=== PATIENT | female | born 1995 | race African-American/Black ===

== ENCOUNTER 2021-07-10 02:05 | Emergency (ER) | payer OTHER ==
[~2021-07-10] VITALS: Ht 157.5 cm; Wt 116.0 kg
[2021-07-10 02:13] VITALS: BP 151/108
[2021-07-10] MEDS ORDERED: HYDROcodone/APAP 7.5/325MG 1 TAB TABLET PO ONE (02:30)
[2021-07-10] MEDS ORDERED: CYCL10TA19 PO (02:35)
[2021-07-10] MEDS ORDERED: HYDR-2759 PO (02:35)
--- NOTE | 2021-07-10 02:37 | PHYS DOC ---
Past History Past Surgical History: No Surgical History Alcohol Use: None General Adult EDM: Chief Complaint: SHOULDER INJURY HPI: HPI: 26-year-old female presents with right shoulder pain. Patient states that she had a Worker's Comp. injury several months ago when she lived in [place]. She was being seen in having physical therapy at that time. She does not know what her official diagnosis was. She moved up to this area couple months ago and has been unable to get into the Worker's Comp. physician. Records not getting transferred. Patient presents this morning because the pain in her posterior right shoulder is making it so she cannot sleep. She does not have any prescription pain relievers or muscle relaxants. She just wants something to take the edge off so she can only sleep at night. The patient is still working and using the arm daily. She denies any new injuries or falls. Review of Systems: Review of Systems: Constitutional: Denies fever or chills Eyes: Denies change in visual acuity HENT: Denies nasal congestion or sore throat Respiratory: Denies cough or shortness of breath Cardiovascular: Denies chest pain or edema GI: Denies abdominal pain, nausea, vomiting, bloody stools or diarrhea : Denies dysuria Musculoskeletal: Right shoulder pain Integument: Denies rash Neurologic: Denies headache, focal weakness or sensory changes Endocrine: Denies polyuria or polydipsia Lymphatic: Denies swollen glands Psychiatric: Denies depression or anxiety Allergies: Allergies: Allergies Coded Allergies Type Severity Reaction Last Updated Verified No Known Drug Allergies 07/10/21 No Physical Exam: PE: Constitutional: Well developed, well nourished, morbidly obese, no acute d istress, non-toxic appearance. [] HENT: Normocephalic, atraumatic, bilateral external ears normal, oropharynx moist, no oral exudates, nose normal. [] Eyes: PERRLA, EOMI, conjunctiva normal, no discharge. [] Neck: Normal range of motion, no tenderness, supple, no stridor. [] Cardiovascular:Heart rate regular rhythm, no murmur [] Lungs & Thorax: Bilateral breath sounds clear to auscultation [] Abdomen: Bowel sounds normal, soft, no tenderness, no masses, no pulsatile masses. [] Skin: Warm, dry, no erythema, no rash. [] Back: No tenderness, no CVA tenderness. [] Extremities: Tenderness of the right superior and posterior shoulder. Range of motion deferred due to pain. [] Neurologic: Alert and oriented X 3, normal motor function, normal sensory function, no focal deficits noted. [] Psychologic: Affect normal, judgement normal, mood normal. [] Current Patient Data: Vital Signs: Vital Signs Date Time Temp Pulse Resp B/P (MAP) Pulse Ox O2 Delivery O2 Flow Rate FiO2 07/10/21 02:13 98.0 77 18 151/108 (122) 98 EKG: EKG: [] Radiology/Procedures: Radiology/Procedures: [] Heart Score: C/O Chest Pain: N/A Risk Factors: Risk Factors: DM, Current or recent (<one month) smoker, HTN, HLP, family history of CAD, obesity. Risk Scores: Score 0 - 3: 2.5% MACE over next 6 weeks - Discharge Home Score 4 - 6: 20.3% MACE over next 6 weeks - Admit for Clinical Observation Score 7 - 10: 72.7% MACE over next 6 weeks - Early Invasive Strategies Course & Med Decision Making: Course & Med Decision Making Pertinent Labs and Imaging studies reviewed. (See chart for details) Patient appears to be uncomfortable. I will treat her with pain medication to the emergency room. I have checked the narcotics database and she does not have any current records. [place] is not available on my system. I will give the patient a short course of [place] for home and Flexeril. I have encouraged her strongly to get her records in hand deliver them to the Worker's Comp. francesia n. She is stable for discharge at this time. [] Terrance Disclaimer: Terrance Disclaimer: This electronic medical record was generated, in whole or in part, using a voice recognition dictation system. Departure Departure: Impression: Primary Impression: Right shoulder pain Disposition: HOME / SELF CARE / HOMELESS Condition: STABLE Referrals: KORY KAPLAN APRN (PCP) Patient Instructions: Shoulder Pain, [id number] Scripts Hydrocodone/Acetaminophen (Hydrocodone-Acetamin 5-325 mg) 1 Each Tablet 1 EACH PO Q4-6HRS PRN for PAIN, #10 TAB Prov: MYA HI DO 07/10/21 Cyclobenzaprine Hcl (CYCLOBENZAPRINE HCL) 10 Mg Tablet 1 TAB PO TID PRN for MUSCLE SPASMS, #30 TAB Prov: MYA HI DO 07/10/21 MYA HI DO Jul 10, 2021 02:36
== END 2021-07-10 02:47 | disposition home or self-care (01) ==
LOC: ER 02:05
DX: M25.511 Pain in right shoulder (principal)
CPT/HCPCS: 99283

== ENCOUNTER 2021-07-17 22:59 | Emergency (ER) | payer SELFPAY ==
[~2021-07-17] VITALS: Ht 157.5 cm; Wt 113.6 kg
[~2021-07-17 22:59] MED LIST: CYCL10TA19 PO; HYDR-2759 PO
[2021-07-17] MEDS ORDERED: CRUT1EAC3 MC (23:20)
--- NOTE | 2021-07-17 23:20 | PHYS DOC ---
Past History Past Medical History: No Pertinent History Additional Past Surgical Histo: [place] tooth extraction Smoking: Non-smoker Alcohol Use: None Drug Use: None General Adult EDM: Chief Complaint: FOOT INJURY PAIN HPI: HPI: 26-year-old female presents with pain to bottom of left foot upon waking yesterday morning. Patient reports since has had a "slight limp " that has become progressively worse. Denies fever or chills. Denies swelling. Patient reports taking a muscle relaxer prior to arrival with some improvement of symptoms. Denies trauma. Denies . Review of Systems: Review of Systems: Constitutional: Denies fever or chills Eyes: Denies redness or eye pain HENT: Denies nasal congestion or sore throat Respiratory: Denies cough or shortness of breath Cardiovascular: Denies chest pain or palpitations GI: Denies abdominal pain, nausea, or vomiting : Denies dysuria or hematuria Musculoskeletal: Denies back pain; reports left foot pain Integument: Denies rash or skin lesions Neurologic: Denies headache, focal weakness or sensory changes Complete systems were reviewed and found to be within normal limits, except as documented in this note. Allergies: Allergies: Allergies Coded Allergies Type Severity Reaction Last Updated Verified No Known Drug Allergies 07/10/21 No Physical Exam: PE: Constitutional: Well developed, well nourished, no acute distress, non-toxic appearance HENT: Normocephalic, atraumatic Eyes: Conjunctiva normal, no discharge Neck: Normal range of motion, supple Lungs & Thorax: No respiratory distress, equal chest rise and fall Skin: Warm, dry, no erythema, no rash Extremities: Pain on palpation to plantar aspect of left foot, ROM intact, no edema, left DP and PT +2 Neurologic: Alert and oriented X 3, normal motor function, normal sensory function, no focal deficits noted Psychologic: Affect normal, judgment normal EKG: EKG: [] Radiology/Procedures: Radiology/Procedures: PROCEDURE: FOOT LEFT 3V EXAMINATION: XR FOOT_LEFT 3 VIEWS CLINICAL HISTORY: Plantar foot pain TECHNIQUE: XR FOOT_LEFT 3 VIEWS COMPARISON: FINDINGS/ IMPRESSION: Joint spaces and alignment maintained. No acute fracture. No focal soft tissue swelling. Electronically signed by: Willy Little DO (07/17/2021 11:56 PM) [facility] Heart Score: C/O Chest Pain: N/A Course & Med Decision Making: Course & Med Decision Making Pertinent Imaging studies reviewed. (See chart for details) Patient presents with left foot pain primarily to plantar aspect. Denies known trauma. Limb neurovascularly intact. Pain addressed. Focal tenderness to plantar aspect likely concerning for plantar fasciitis. Ice applied. Issac wrap provided. Crutches prescription also given. 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 Podiatry referral provided. Discussed findings and plan with patient and family, who acknowledge understanding and agreement. Terrance Disclaimer: Terrance Disclaimer: This electronic medical record was generated, in whole or in part, using a voice recognition dictation system. Splinting Splinting : Location: Left foot Pre-Made Type: Issac bandage Pre-Proc Neuro Vasc Exam: normal Post-Proc Neuro Vasc Exam: normal, unchanged from pre-exam Departure Departure: Impression: Primary Impression: Foot pain, left Disposition: 01 HOME / SELF CARE / HOMELESS Condition: STABLE Referrals: PCP,DONA (PCP) HANNAH BATISTA DPM Patient Instructions: Crutch Use, [id number], Plantar Fasciitis, RICE - Routine Care for Injuries, [id number] Additional Instructions: ICE area of discomfort 20 min on then leave off next 20 mins. Repeat 20 min on then leave off next 20 mins. Take [id number] ibuprofen and or Tylenol for pain or discomfort. Scripts Crutch (CRUTCH) 1 Each Each PAIR MC UD for Foot pain, #1 DISPENSE: 1 PAIR OF CRUTCHES. PATIENT TO USE INSTRUCTED BY PROVIDER. Prov: MILAGROS HOOK DO 07/17/21 MILAGROS HOOK DO Jul 17, 2021 23:20
[2021-07-17] MEDS ORDERED: IBUPROFEN 600 MG TABLET. PO ONE (23:30)
--- NOTE | 2021-07-17 23:59 | RAD ---
EXAMINATION: XR FOOT_LEFT 3 VIEWS CLINICAL HISTORY: Plantar foot pain TECHNIQUE: XR FOOT_LEFT 3 VIEWS COMPARISON: FINDINGS/ IMPRESSION: Joint spaces and alignment maintained. No acute fracture. No focal soft tissue swelling. Electronically signed by: Willy Little DO (07/17/2021 11:56 PM) [facility]
[2021-07-18 00:05] VITALS: BP 122/86
== END 2021-07-18 00:08 | disposition home or self-care (01) ==
LOC: ER 22:59
DX: M79.672 Pain in left foot (principal)
CPT/HCPCS: 73630; 99283